=== PATIENT | female | born 1945 | race Caucasian/White ===

== ENCOUNTER 2019-05-31 14:32 | Emergency (ER) | payer MEDICARE, SELFPAY ==
--- NOTE | ~2019-05-31 | XR_ITS ---
EXAMINATION: XR wrist LT min 3V DATE: 05/31/2019 15:02 INDICATION: Left wrist pain TECHNIQUE: Posteroanterior, ulnar deviation, oblique, and lateral views of the left wrist were obtain ed. COMPARISON: None available FINDINGS: There is no dislocation or subluxation. There appears to be mild buckling of the dorsal cor lazaro of the distal radius on the lateral view. 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 Negative ulnar variance is noted. There is lateral soft tissue swelling of t he wrist. IMPRESSION: 1. Possible mild impaction fracture of the distal radius. Reviewed, dictated and finalized at location A.
[2019-05-31 14:43] VITALS: BP 127/66; PULSE 56; RESP 14; TEMP 36.7; O2SAT 99
--- NOTE | 2019-05-31 15:16 | ED.UPPEXIN ---
HPI - Extremity Injury (Upper) General Chief Complaint: Extremity Injury, Upper Stated Complaint: Left wrist injury Time Seen by Provider: 05/31/19 15:18 Source: patient and RN notes reviewed Mode of arrival: ambulatory Limitations: no limitations History of Present Illness HPI narrative: This is a 73 years old female presents to office for an evaluation left wrist injury. Onset two days ago. She was hiking and slipped on a wet rock and landed on her left wrist to brace herself. She did not hit her head or loss consciousness. She scraped her elbow and denies any other injury. Td is up-to-date. Admits to history of osteopenia. Related Data Home Medications Medication Instructions Recorded Confirmed atorvastatin [Lipitor] 40 mg PO DAILY 05/31/19 05/31/19 levothyroxine [Synthroid] 125 mcg PO DAILY 05/31/19 05/31/19 omeprazole 10 mg PO DAILY 05/31/19 05/31/19 Allergies Allergy/AdvReac Type Severity Reaction Status Date / Time No Known Allergies Allergy Verified 05/31/19 14:57 Review of Systems Review of Systems: Narrative: CONSTITUTIONAL: Denies fever or feeling ill CARDIOVASCULAR: Denies chest pain RESPIRATORY: Denies dyspnea GASTROINTESTINAL: Denies nausea SKIN: Reports small scrape in her left elbow MUSCULOSKELETAL: Reports left wrist pain with a little swelling NEUROLOGIC: Denies feeling dizzy prior to falling PMFSH Past Medical History Medical History (Updated 05/31/19 @ 15:50 by ARELI Jones) GERD (gastroesophageal reflux disease) HLD (hyperlipidemia) Hypothyroid Comments At time of signature, I agree with nursing past medical, surgical, social and family history. There is no relevant family history pertinent to the presenting complaint. Exam Narrative: Exam Narrative: GENERAL: This is a well-nourished, well-developed patient, in no apparent distress. CARDIOVASCULAR: Regular rate and rhythm without murmurs, gallops, or rubs. RESPIRATORY: Clear to auscultation. Breath sounds equal bilaterally. No wheezes, rales, or rhonchi. SKIN: left elbow skin abrasion appears healing well;no obvious drainage or pustular drainage. NEURO: awake, alert, and oriented to person, place and time. There were no obvious focal neurologic abnormalities. EXTREMITIES: the left wrist is with obvious asymmetry or deformity when compared to the right wrist. NO surface trauma, open wounds, swelling or obvious deformity. No overlying erythema or warmth. There is slight tenderness over styloid process of radius and minimal swelling over ulnar styloid process. Range of motion is limited secondary to pain. Motor/sensory function of ulnar, radial, median nerves intact. Ulnar and radial pulses intact. Cap refills brisk. Hands normal. Course Vital Signs Vital signs: Vital Signs Temperature 98.1 F 05/31/19 14:43 Pulse Rate 56 L 05/31/19 14:43 Respiratory Rate 14 05/31/19 14:43 Blood Pressure 127/66 05/31/19 14:43 Pulse Oximetry 99 05/31/19 14:43 Temperature 98.1 F 05/31/19 14:43 Pulse Rate 56 L 05/31/19 14:43 Respiratory Rate 14 05/31/19 14:43 Blood Pressure 127/66 05/31/19 14:43 Pulse Oximetry 99 05/31/19 14:43 MDM - Extremity Injury (Upper) MDM Narrative Medical decision making narrative: Discharge instructions reviewed with patient, as well as provided in writing per nursing staff. The instructions also include specific and strict return/GO TO THE ER as well as f/u information. All questions have been answered, and the patient deny any further questions with discharge and discharge plan. Differential Diagnosis Differential diagnosis: Likely sprain and strain of wrist, fracture of wrist and fracture of hand Imaging Data Attestation: I personally reviewed and interpreted this imaging study as follows: My impression: see report Radiologist's impression: Possible mild impaction fracture of the distal radius Critical Care Time Critical Care Time Critical Care Time: No Discharge
== END 2019-05-31 15:47 | disposition home or self-care (01) ==
PROVIDERS: Emergency Provider Nurse Practitioner
DX: S52.502A Unspecified fracture of the lower end of left radius, initial encounter for closed fracture (principal); W01.0XXA Fall on same level from slipping, tripping and stumbling without subsequent striking against object, initial encounter; K21.9 Gastro-esophageal reflux disease without esophagitis; E78.5 Hyperlipidemia, unspecified; E03.9 Hypothyroidism, unspecified; E78.00 Pure hypercholesterolemia, unspecified
CPT/HCPCS: 29125; 73110; 99213; G0463